=== PATIENT | male | born 1985 | race African-American/Black ===

== ENCOUNTER 2022-03-21 17:02 | Emergency (ER) | payer MEDICAID ==
[~2022-03-21] VITALS: Ht 180.3 cm; Wt 102.0 kg
[2022-03-21 17:06] VITALS: BP 129/78
== END 2022-03-21 18:00 | disposition home or self-care (01) ==
LOC: ER 17:02
DX: M79.602 Pain in left arm (principal); V43.52XA Car driver injured in collision with other type car in traffic accident, initial encounter; Y93.89 Activity, other specified; Y92.488 Other paved roadways as the place of occurrence of the external cause
CPT/HCPCS: 99283